=== PATIENT | male | born 1955 | race Caucasian/White ===

== ENCOUNTER 2017-06-24 08:48 | Day surgery (SDC) | payer BC ==
[~2017-06-24 08:48] MED LIST: ACETAMINOPHEN 1,000 MG/100 ML BTL IV ONE; CELECOXIB 100 MG CAPSULE PO ONE; FAMOTIDINE 20MG TABLET PO ONE; MECLIZINE 25 MG TABLET PO ONE; METOCLOPRAMIDE 10 MG TABLET PO ONE; VANCOMYCIN HCL 1,000 MG in DEXTROSE 5 % IN WATER 250 ML IVPB ONE
[2017-06-24] MEDS ORDERED: MIDAZOLAM HCL 2MG/2ML VIAL IV ONE (08:49)
[2017-06-24] MEDS ORDERED: VANCOMYCIN HCL 1 GM VIAL IVPB ONE ×2 (08:49)
[2017-06-24] MEDS ORDERED: FENTANYL PF 100MCG/2ML VIAL IV ONE (08:49)
[2017-06-24] MEDS ORDERED: HYDROMORPHONE HCL 2 MG/ML VIAL IV ONE (08:49)
[2017-06-24] MEDS ORDERED: PROPOFOL 10 MG/ML VIAL IV ONE (08:49)
[2017-06-24] MEDS ORDERED: TRANEXAMIC ACID 1,000 MG/10 ML ML IV ONE ×2 (08:49)
[2017-06-24] MEDS ORDERED: BUPIVACAINE 0.75% W/EPI MPF 30ML VIAL IVP ONE ×2 (08:49)
[2017-06-24] MEDS ORDERED: KETOROLAC 30 MG/ML VIAL IVP ONE (08:49)
[2017-06-24] MEDS ORDERED: *PACU ONLY* KETAMINE HCL 10 MG/ML (20ML) VIAL IV ONE (08:49)
[2017-06-24] MEDS ORDERED: BUPIVACAINE LIPOSOME 266MG/20ML VIAL IV ONE (08:49)
[2017-06-24] MEDS ORDERED: LIDOCAINE 2% MDV (20MG/ML) 20ML VIAL IV ONE (08:49)
[2017-06-24 09:44] LABS: ABO GROUP O; ANTIBODY SCREEN NEGATIVE (NEGATIVE); RH TYPE POSITIVE
[2017-06-24] MEDS ORDERED: DIPHENHYDRAMINE HCL 25 MG CAPSULE PO PRN (15:46)
[2017-06-24] MEDS ORDERED: DEXTROSE 5 % AND 0.9 % NACL 1,000 ML IV PRN (15:46)
[2017-06-24] MEDS ORDERED: METOCLOPRAMIDE 10 MG TABLET PO PRN (15:46)
[2017-06-24] MEDS ORDERED: ONDANSETRON 4 MG ODT TABLET SL PRN (15:46)
[2017-06-24] MEDS ORDERED: NALOXONE 0.4 MG/1 ML VIAL IVP PRN (15:46)
[2017-06-24] MEDS ORDERED: MAGNESIUM HYDROXIDE 30 ML UDC PO PRN (15:46)
[2017-06-24] MEDS ORDERED: HYDROCODONE/APAP 5/325MG TABLET PO PRN ×2 (15:46)
[2017-06-24] MEDS ORDERED: ACETAMINOPHEN W/ CODEINE 300MG/30MG TABLET PO PRN ×2 (15:46)
[2017-06-24] MEDS ORDERED: BISACODYL 10 MG SUPP RC PRN (15:46)
[2017-06-24] MEDS ORDERED: HYDROCODONE/APAP 7.5/325MG TABLET PO PRN ×2 (15:46)
[2017-06-24] MEDS ORDERED: AL HYDROX/MAG HYDROX 30ML UD PO PRN (15:46)
[2017-06-24] MEDS ORDERED: ACETAMINOPHEN 325 MG TAB PO PRN (15:46)
[2017-06-24] MEDS ORDERED: TRAMADOL HCL 50 MG TABLET PO PRN ×2 (15:46)
[2017-06-24] MEDS ORDERED: ACETAMINOPHEN W/ CODEINE 300MG/60MG TABLET PO PRN ×2 (15:46)
[2017-06-24] MEDS ORDERED: PROMETHAZINE HCL 25 MG TABLET PO PRN (15:46)
[2017-06-24] MEDS ORDERED: KETOROLAC 30 MG/ML VIAL IVP PRN ×2 (15:46)
--- NOTE | 2017-06-24 15:52 | Rehab Evaluation ---
Patient Information - Patient Information Diagnosis: R TKA Ordered Treatment: OT Evaluate and Treat Status: Initial Evaluation Surgery: Yes Date of Surgery: 06/24/17 Past Medical/Surgical Hx: PAST MEDICAL/SURGICAL HISTORY Past Surgical History rt knee; lipoma lt shoulder; basal cell forehead may 30 colonoscopy PMH - Respiratory Hx Respiratory Disorders No PMH - Cardiovascular Hx Cardiovascular Disorders Yes Hx Hypertension Yes Exercise Tolerance Good Comment: bikes often- 18 miles PMH - Neuro Hx Neurological Disorders No PMH - GI Hx Gastrointestinal Disorders Yes Hx Gastroesophageal Reflux Yes: r/t aspirin; nsaids PMH - Hx Genitourinary Disorders Yes Hx Kidney Stones Yes: in past ; PMH - Endocrine Hx Endocrine Disorders No PMH - Musculoskeletal Hx Musculoskeletal Disorders Yes Hx Arthritis Yes: knee PMH - Psych Hx Psychiatric Problems No PMH - Hematology/Oncology Hx Hematology/Oncology Yes Disorders Hx Cancer Yes: basal cell -forehead Premorbid Status: Detail (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 Pt has 2 steps to enter house from garage and 1 step w/ R side railing to enter from front of house. Pt's bedroom, bathroom, and kitchen are located on 1st floor. He has tub/shower combo, standard toilet, and 2WW.) Precautions: [place], Fall - Time With Patient Total Time Spent With Patient (Min): 25 Treatment Procedures: Detail (OT eval LOW) Subjective Information - Subjective Information Per Patient Objective Data - Pain Pain Present: No Pain Intensity: 0 (R knee) Pain Scale Used: Numeric (1 - 10) - Mental Status Patient Orientation: Oriented x3 - Visual Perception Appears within normal limits for therapeutic activities - ROM Within normal limits (BUE's) - Strength/Tone Within normal limits (BUE's) - Coordination Appears within normal limits for therapeutic activities - Bed Mobility Independent - Transfers Independent (Sit<>stand) - Balance Balance Sitting: Good Balance Standing: Good - Sensation Intact (Ren hands) - Gait Detail (Pt amb. independently w/ 2WW to and from BR to trial voiding while standing. Pt unable to void and amb back to EOB to complete drsg.) - ADL's/IADL's Detail (Pt educated on modified drsg technique. Pt demo'd ind. w/ breif and pants don. Pt ind. w/ ren sock doff. Ind w/ L sock don. Required assistance from friend to don R sock. Pt's friend will be around to assist w/ sock and shoe don until pt able to reach R foot himself. Pt plans to sponge bath. Pt's friend will be staying with him to assist with ADLs and home chores as needed.) Therapy Assessment - Therapy Assessment Detail (Pt safe and independent w/ pants don/doff. He requires some assistance w / R sock and shoe don but will have assistance from pt's friend. Do not anticipate pt needing further inpatient OT.) Patient Education - Patient Education Teaching Topic: Other (Modified drsg technique) Response: Return Demonstration Teaching Method: Discussion Teaching Recipient: Patient, Primary Caregiver Barriers To Learning: None Prognosis - Prognosis Good Plan - Plan Occupational Therapy Plan: No further inpatient OT needed at this time. Pt to be d/c'd from inpatient OT.
[2017-06-24] MEDS ORDERED: VANCOMYCIN HCL 500 MG in 0.9 % SODIUM CHLORIDE 100ML 100 ML IVPB SCH (16:00)
--- NOTE | 2017-06-24 16:52 | Rehab Evaluation ---
Patient Information - Patient Information Diagnosis: R TKA Ordered Treatment: PT Evaluate and Treat Status: Initial Evaluation Surgery: Yes Date of Surgery: 06/24/17 Past Medical/Surgical Hx: PAST MEDICAL/SURGICAL HISTORY Past Surgical History rt knee; lipoma lt shoulder; basal cell forehead may 30 colonoscopy PMH - Respiratory Hx Respiratory Disorders No PMH - Cardiovascular Hx Cardiovascular Disorders Yes Hx Hypertension Yes Exercise Tolerance Good Comment: bikes often- 18 miles PMH - Neuro Hx Neurological Disorders No PMH - GI Hx Gastrointestinal Disorders Yes Hx Gastroesophageal Reflux Yes: r/t aspirin; nsaids PMH - Hx Genitourinary Disorders Yes Hx Kidney Stones Yes: in past ; PMH - Endocrine Hx Endocrine Disorders No PMH - Musculoskeletal Hx Musculoskeletal Disorders Yes Hx Arthritis Yes: knee PMH - Psych Hx Psychiatric Problems No PMH - Hematology/Oncology Hx Hematology/Oncology Yes Disorders Hx Cancer Yes: basal cell -forehead Premorbid Status: Detail (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 Pt has 2 steps to enter house from garage and 1 step w/ R side railing to enter from front of house. Pt's bedroom, bathroom, and kitchen are located on 1st floor. He has tub/shower combo, standard toilet, and 2WW.) Precautions: [place], Fall - Time With Patient Total Time Spent With Patient (Min): 30 Treatment Procedures: Detail (Initial Evaluation, Gait training and instruction in HEP) Subjective Information - Subjective Information Per Patient (The patient had no complaints of pain. The patient did complain of nausea when ambulating and vomitted after descending stairs.) Objective Data - Mental Status Patient Orientation: Oriented x3 - Visual Perception Appears within normal limits for therapeutic activities - ROM Not within normal limits (The patient's R knee flexion was to 90 degrees and extension to 0 degrees. All other LE AROM was WNL.) - Strength/Tone Within normal limits (The patient's L LE strength was generally 4+ to 5/5, RLE strength was not tested secondary to status post surgery, however it was functional ie: patient was able to complete a SLR.) - Bed Mobility Independent (The patient was independent with supine to and from sit transfer and scooting up in bed.) - Transfers Independent (The patient was indepedent with sit to and from stand transfer) - Balance Balance Sitting: Good Balance Standing: Good - Sensation Intact - Gait Detail (The patient ambulated with wheeled walker independently a distance of 108 ft. x 1 WBAT on the R LE. The patient ambulated on the stairs with supervision for safety only and verbal cues for proper technique. 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 The patient is to have Home Care PT.) Patient Education - Patient Education Teaching Topic: Exercise/Activity (The patient completed LE TKA exercises : SLR , heel slides, quad sets, gluteal sets, hamstring sets and ankle pumps.) Response: Return Demonstration Teaching Method: Demonstration, Handout Teaching Recipient: Patient Barriers To Learning: None Problem List - Problem List Physical Therapy Problem List: Detail (Decreased R knee AROM and strength) Goals - Goals Physical Therapy Goals: All inpatient PT goals were met. ( Independent with mobility, ambulation on levels and stairs and HEP.) Prognosis - Prognosis Good Plan - Plan Physical Therapy Plan: Patient is discharged from inpatient PT at this time. Patient is to continue with Home PT Occupational Therapy Plan: No further inpatient OT needed at this time. Pt to be d/c'd from inpatient OT.
[2017-06-24] MEDS ORDERED: DOCUSATE SODIUM 100 MG CAPSULE PO SCH (22:00)
[2017-06-25] MEDS ORDERED: AMLODIPINE BESYLATE 5MG TAB PO SCH (10:00)
[2017-06-25] MEDS ORDERED: BENAZEPRIL 20 MG TABLET PO SCH (10:00)
--- NOTE | 2017-06-25 13:50 | Operative Note ---
DATE OF SURGERY: 06/24/2017 PREOPERATIVE DIAGNOSIS: Right knee end-stage varus arthrosis. POSTOPERATIVE DIAGNOSIS: Right knee end-stage varus arthrosis. OPERATION: Right total knee arthroplasty. Surgeon: Woody Cavanaugh MD Anesthesia: Spinal, Ana ZAMORA. COMPLICATIONS: None. ESTIMATED BLOOD LOSS: Minimal. TIME: Approximately 60 minutes. OPERATIVE FINDINGS: Severe [id number] varus arthrosis. COMPONENTS PLACED: A [employer] II Oxinium total knee arthroplasty system size 9 femoral component, a size 8 tibial baseplate, an 11 mm thick tibial poly insert, and a 35 mm cemented patellar component 2 g vancomycin. Indications: This is a 61-year-old male with severe varus bilateral knee arthrosis, failed nonoperative treatment, scheduled for procedure above. I explained all risks and benefits in detail for the diagnosis and procedure including but not limited to infection, nerve injury, vessel injury, persistent pain, stiffness, numbness, tingling, need for anticoagulation to prevent blood clots, the risks associated with these medications, need for further procedures, need for resection arthroplasty if components become infected or loosen, nerve injury, vessel injury. All his questions were answered. The course was outlined. He agreed to proceed. PROCEDURE: The patient brought to the OR, placed in the supine position, prepped for surgery. Spinal anesthesia induced. The right lower extremity prepped and draped in sterile fashion. Right knee prepped again with Chloraprep and draped. Intraoperative timeout was performed. Next, the leg was exsanguinated with Esmarch. The leg was flexed and tourniquet inflated to 250 mmHg pressure. Next, skin and subcutaneous tissue dissected down. Medial and lateral skin flaps. Incised the capsule medially along the medial border of the patella to the tibial tubercle. Incised the vastus medialis in line with its fibers in a mid vastus approach and everted the patella. I partially resected the retropatellar fat pad, flexed the knee, elevated the capsule subperiostial and medial as well. He had severe varus medial compartment arthrosis, erosive arthrosis approximately a centimeter erosion posteromedial tibial plateau. Next, drilled intracondylar drill hole and inserted intramedullary guide francine and the 6-degree cutting block and aligned off the distal femoral condyle. Pinned it in +2 mm position and cut the distal femoral condyles. Next, we placed a sizing jig on the distal femoral condyle and sized it to be right on size 9. Brought out the instrument set, placed a size 9 jig through the previously-placed pin holes, dialed in the anterior cut so it would come out flush without notching. We cut that cut and it was a good flush cut. Next, we pinned the cutting jig in place and cut the chamfer cuts in the usual fashion. Placed a size 9, centered it, pinned it, and removed osteophytes off periphery. Inserted the femoral resection collet and reamed out with box osteotome and the cruciate bone block. Next, attention turned to the tibia. Placed the spikes in the tubercular groove 2 fingerbreadths distal to the anterior tibial cortex off the tibial anatomic axis of the central third tibial tubercle. Next, we referenced with a cutting jig for a 9 mm cut off the higher lateral plateau. We checked our resection cut, cutting resection cut grocery checker so that it would come out just flush and skive the medial erosive posteromedial tibial plateau, which at that level it would. Next, we cut the tibia and it was a good cut. Next, we removed osteophytes off the posterior femoral condyle using a curved osteotome. We released the capsule and deep MCL with electrocautery subperiosteally and curved osteotome medially and lengthened the deep MCL slightly so that we would balance our ligament tension in flexion/extension gaps and we sized up to an 11 mm insert. This allowed for 2-3 mm of varus/valgus laxity in flexion/extension. Overall alignment cuts in extension with anatomic valgus orientation with alignment francine centered on the hip joint and ankle joint. Next, then took the knee into flexion, sized the tibial baseplate with a size 8, replaced all trial components, set the rotation tibial baseplate again extension using the alignment francine centered on hip joint and ankle joint. Marked electrocautery etienne on the anterior tibial cortex off the laser etienne on the tibial baseplate. Next, attention was turned to the patella. We set the cutting jig to allow for a 9 mm thick patellar insert, which was about 22-23 mm. We cut the patella. It was right on 12-13 mm. We then sized it and found to be 35, medialized as much as possible and drilled 3 peg holes and then mixed cement. Did a trial range of motion. Patellar tracked nicely handsfree. Full extension and flexion to 140-150 degrees again symmetric flexion/extension gaps. Next, flexed the knee, exposed the proximal tibia and seated the tibial baseplate off the previously-placed electrocautery etienne, pinned it in place and reamed out and box osteotome and inserted the keel punch. Next, changed gloves, brought in clean sheets, copiously irrigated with bolus pulse lavage and antibiotic solution. Placed bone plug femoral canal hole, placed the reamer, drill bit in the tibial hole to prevent cement extrusion, packed down the tibial component first and then the femoral component and clamped down on the patella component and held the knee in extension until cement hardened and then removed excess cement. Once the cement hardened, took the knee in flexion and removed the patella clamp. Removed the trial tibial poly insert and irrigated and removed any excess cement around the edges and posteriorly recessed the components. Next, injected the posterior, medial, and lateral capsule, medial and lateral periosteum, vastus medialis, subcutaneous with 0.5% Marcaine with epinephrine, 2 g tranexamic acid, and Exparel mixture and then inserted the real tibia poly insert and verifies it was interlocked medially and laterally. We found our range of motion to be the same. Irrigated. Closed the vastus split and capsule with running #2 Quill suture with knee in flexion. We also did slightly tight laterally. Therefore, we did a pie crusting lateral release and this removed some of the tension and pull on the lateral patella. Next, we irrigated and closed the skin with 2-0 Vicryl and staple and placed zip line. Injected the skin also with 0.5% Marcaine with epinephrine. Sterile dressing applied. Tank wrap. Tolerated the procedure well. No intraoperative complications. Sponge, needle, and blade counts correct. Recovery room stable, neurovascularly intact. Will be discharged as an outpatient total joint program. Will have home therapy nurse with [facility] today and follow up in 2 weeks and I will him at his home to admit him in his house this afternoon/evening. CC: Yamilet DOMINGUEZ
== END 2017-06-24 17:53 | disposition home health service (06) ==
LOC: SUR 08:48 → MEDSURG 14:15 → SUR 17:53
PROVIDERS: ATTEND Orthopaedic Surgery
DX: M17.11 Unilateral primary osteoarthritis, right knee (principal); I10 Essential (primary) hypertension
CPT/HCPCS: 86850; 86900; 86901; 97165; J1885; J3370; J3490; J7060

== ENCOUNTER 2017-09-02 10:31 | Day surgery (SDC) | payer BC ==
[2017-09-02] MEDS ORDERED: *PACU ONLY* KETAMINE HCL 10 MG/ML (20ML) VIAL IV ONE (10:32)
[2017-09-02] MEDS ORDERED: KETOROLAC 30 MG/ML VIAL IVP ONE (10:32)
[2017-09-02] MEDS ORDERED: BUPIVACAINE 0.5% (5MG/ML) PF 30ML VIAL IVP ONE (10:32)
[2017-09-02] MEDS ORDERED: SCOPOLAMINE 1 PATCH TDSY TD ONE (10:32)
[2017-09-02] MEDS ORDERED: PROPOFOL 10 MG/ML VIAL IV ONE (10:32)
[2017-09-02] MEDS ORDERED: MIDAZOLAM HCL 2MG/2ML VIAL IV ONE (10:32)
[2017-09-02 11:14] LABS: ABO GROUP O; ANTIBODY SCREEN NEGATIVE (NEGATIVE); RH TYPE POSITIVE
[2017-09-02] MEDS ORDERED: NALOXONE 0.4 MG/1 ML VIAL IVP PRN (12:37)
[2017-09-02] MEDS ORDERED: ACETAMINOPHEN 325 MG TAB PO PRN (12:37)
[2017-09-02] MEDS ORDERED: HYDROCODONE/APAP 7.5/325MG TABLET PO PRN ×2 (12:37)
[2017-09-02] MEDS ORDERED: DIPHENHYDRAMINE HCL 25 MG CAPSULE PO PRN (12:37)
[2017-09-02] MEDS ORDERED: PROMETHAZINE HCL 25 MG TABLET PO PRN (12:37)
[2017-09-02] MEDS ORDERED: TRAMADOL HCL 50 MG TABLET PO PRN ×2 (12:37)
[2017-09-02] MEDS ORDERED: AL HYDROX/MAG HYDROX 30ML UD PO PRN (12:37)
[2017-09-02] MEDS ORDERED: ONDANSETRON 4 MG ODT TABLET SL PRN (12:37)
[2017-09-02] MEDS ORDERED: KETOROLAC 30 MG/ML VIAL IVP PRN ×2 (12:37)
[2017-09-02] MEDS ORDERED: ACETAMINOPHEN W/ CODEINE 300MG/60MG TABLET PO PRN ×2 (12:37)
[2017-09-02] MEDS ORDERED: BISACODYL 10 MG SUPP RC PRN (12:37)
[2017-09-02] MEDS ORDERED: HYDROCODONE/APAP 5/325MG TABLET PO PRN ×2 (12:37)
[2017-09-02] MEDS ORDERED: METOCLOPRAMIDE 10 MG TABLET PO PRN (12:37)
[2017-09-02] MEDS ORDERED: ACETAMINOPHEN W/ CODEINE 300MG/30MG TABLET PO PRN ×2 (12:37)
[2017-09-02] MEDS ORDERED: MAGNESIUM HYDROXIDE 30 ML UDC PO PRN (12:37)
[2017-09-02] MEDS ORDERED: DEXTROSE 5 % AND 0.9 % NACL 1,000 ML IV PRN (15:00)
[2017-09-02] MEDS ORDERED: VANCOMYCIN HCL 500 MG in 0.9 % SODIUM CHLORIDE 100ML 100 ML IVPB SCH (15:30)
--- NOTE | 2017-09-02 17:18 | Rehab Evaluation ---
Patient Information - Patient Information Diagnosis: Left TKA Ordered Treatment: OT Evaluate and Treat Status: Initial Evaluation Surgery: Yes (L TKA) Date of Surgery: 09/02/17 Past Medical/Surgical Hx: PAST MEDICAL/SURGICAL HISTORY Past Surgical History rt knee; lipoma lt shoulder; basal cell forehead may 30 colonoscopy RTKA 07/04 PMH - Respiratory Hx Respiratory Disorders No PMH - Cardiovascular Hx Cardiovascular Disorders Yes Hx Hypertension Yes Exercise Tolerance Fair Comment: bikes often- 18 miles PMH - Neuro Hx Neurological Disorders No PMH - GI Hx Gastrointestinal Disorders Yes Hx Gastroesophageal Reflux Yes: r/t aspirin; nsaids PMH - Hx Genitourinary Disorders Yes Hx Kidney Stones Yes: in past ; PMH - Endocrine Hx Endocrine Disorders No PMH - Musculoskeletal Hx Musculoskeletal Disorders Yes Hx Arthritis Yes: knee PMH - Psych Hx Psychiatric Problems No PMH - Hematology/Oncology Hx Hematology/Oncology Yes Disorders Hx Cancer Yes: basal cell -forehead Premorbid Status: Detail (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 Pt's friend occupys the 2nd floor while patient occupys 1st floor. Pt's bedroom, bathroom, and kitchen are all located on the first floor. Pt has a tub/ shower combo, standard toilet, and 2WW. There are 2 steps to enter house from garage and 1 step from front porch entrance.) Precautions: [place], Fall, Other (WBAT) - Time With Patient Total Time Spent With Patient (Min): 15 Treatment Procedures: Detail (OT eval LOW) Subjective Information - Subjective Information Per Patient (Pt states he is feeling great after therapy and is excited to get home as soon as possible.) Objective Data - Pain Pain Present: No - Mental Status Patient Orientation: Oriented x3 - Visual Perception Appears within normal limits for therapeutic activities - ROM Within normal limits (BUE's) - Strength/Tone Within normal limits (BUE's) - Coordination Appears within normal limits for therapeutic activities - Transfers Independent (sit<>stand t/f) - Balance Balance Sitting: Good Balance Standing: Good - Sensation Intact (Ren digits.) - Gait Detail (Pt ambulated from bedroom to stairwell independently w/ 2WW.) - ADL's/IADL's Detail (Pt able to don pants independently. He was able to verbalize technique as he remembered from his R TKA he had done in June. Attempted to don socks but patient unable to reach at this time. Pt has good friend staying with him that assisted with all ADLs after last TKA and will be willing to help as needed following this sx. Discussed bathing and wrapping L knee. Pt plans to sponge bath for first few days.) Therapy Assessment - Therapy Assessment Detail (Pt safe and independent with pants don. He will have assistance available for sock and shoe don until ROM increases in L knee. Pt able to verbalize understanding of wrapping technique when bathing to prevent water saturation on incision. No further inpatient OT needed.) Patient Education - Patient Education Teaching Topic: Other (modified drsg technique) Response: Return Demonstration Teaching Method: Discussion Teaching Recipient: Patient Barriers To Learning: None Prognosis - Prognosis Good Plan - Plan Occupational Therapy Plan: No further inpatient OT needed at this time.
--- NOTE | 2017-09-02 17:25 | Rehab Evaluation ---
Patient Information - Patient Information Diagnosis: Left TKA Ordered Treatment: PT Evaluate and Treat Status: Initial Evaluation Surgery: Yes (L TKA) Date of Surgery: 09/02/17 Past Medical/Surgical Hx: PAST MEDICAL/SURGICAL HISTORY Past Surgical History rt knee; lipoma lt shoulder; basal cell forehead may 30 colonoscopy RTKA 07/04 PMH - Respiratory Hx Respiratory Disorders No PMH - Cardiovascular Hx Cardiovascular Disorders Yes Hx Hypertension Yes Exercise Tolerance Fair Comment: bikes often- 18 miles PMH - Neuro Hx Neurological Disorders No PMH - GI Hx Gastrointestinal Disorders Yes Hx Gastroesophageal Reflux Yes: r/t aspirin; nsaids PMH - Hx Genitourinary Disorders Yes Hx Kidney Stones Yes: in past ; PMH - Endocrine Hx Endocrine Disorders No PMH - Musculoskeletal Hx Musculoskeletal Disorders Yes Hx Arthritis Yes: knee PMH - Psych Hx Psychiatric Problems No PMH - Hematology/Oncology Hx Hematology/Oncology Yes Disorders Hx Cancer Yes: basal cell -forehead Premorbid Status: Detail (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 Pt's friend occupys the 2nd floor while patient occupys 1st floor. Pt's bedroom, bathroom, and kitchen are all located on the first floor. Pt has a tub/ shower combo, standard toilet, and 2WW. There are 2 steps to enter house from garage and 1 step from front porch entrance.) Precautions: [place], Fall, Other (WBAT) - Time With Patient Total Time Spent With Patient (Min): 30 Treatment Procedures: Detail (Initial Evaluation) Subjective Information - Subjective Information Per Patient (The patient was up in chair when PT arrived and had no complaints of knee pain.) Objective Data - Mental Status Patient Orientation: Oriented x3 - ROM Not within normal limits (L knee AROM was not assessed s/p surgery. All other LE AROM was within normal limits.) - Strength/Tone Not within normal limits (The patient's L LE strength was not tested secondary to status post surgery, however the patient's strength was functional.) - Bed Mobility Independent (The patient was up in chair when PT arrived, however the patient was independent with bed mobility supine to and from sit per nursing staff.) - Transfers Independent (The patient was independent with sit to and from stand transfer.) - Balance Balance Sitting: Good Balance Standing: Good (The patient was able to stand and put on his pants on.) - Sensation Intact - Gait Detail (The patient ambulated with wheeled walker WBAT on the L LE independently a distance of 108 feet x 1. The patient ambulated on 3 steps with use of folded walker and one railing with supervision of 1 for safety only and verbal cues for proper technique. The patient's was informed that the patient may require cueing for proper technique.) Therapy Assessment - Therapy Assessment Detail (The patient is independent with bed mobility transfers and ambulation with wheeled walker. Verbal cueing and supervision is recommended on stairs, which patient's will provide.) Patient Education - Patient Education Teaching Topic: Exercise/Activity (The patient's HEP was reviewed including ankle pumps, gluteal sets, hamstring sets quad sets, heel slides and SLR. The patient had good unstanding of HEP.) Response: Return Demonstration, Verbalize Understanding Teaching Method: Handout Teaching Recipient: Patient Barriers To Learning: None Problem List - Problem List Physical Therapy Problem List: Detail (1) Decreased L knee AROM and strength as to be expected s/p surgery.) Goals - Goals Physical Therapy Goals: The patient has met all PT inpatient goals including: Independent bed mobility, transfers and ambulation on levels and stairs. The patient was Independent with HEP. Prognosis - Prognosis Good Plan - Plan Physical Therapy Plan: The patient is discharged from inpatient PT secondary to all inpatient goals have been met. The patient is to receive home and outpatient PT.
--- NOTE | 2017-09-02 20:58 | Operative Note ---
DATE OF SURGERY: 09/02/2017. PREOPERATIVE DIAGNOSIS: ENDSTAGE LEFT KNEE ARTHROSIS. POSTOPERATIVE DIAGNOSIS: ENDSTAGE LEFT KNEE ARTHROSIS. OPERATION: Left total knee arthroplasty. SURGEON: Woody Cavanaugh M.D. ANESTHESIA: Spinal, Ana Lovell CRNA. COMPLICATIONS: None. ESTIMATED BLOOD LOSS: Minimal. TOURNIQUET TIME: Approximately 70 minutes. 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 COMPONENTS PLACED: A total of 2.0 gm vancomycin cement, [employer] II Oxinium size 9 femoral component, a size 8 tibial baseplate, a 15 mm thick tibial poly insert, and 35 mm cemented patellar component. INDICATIONS: This is an 62-year-old male who has had endstage bilateral varus knee arthrosis for several years. He is status post right total knee arthroplasty by myself done several months ago, and he is now scheduled for this procedure on the left. I explained to him all risks and benefits of surgery in detail for the diagnosis and procedures including but not limited to infection, nerve injury, vessel injury, persistent pain, stiffness, numbness and tingling in his knee, periprosthetic fracture, need for resection arthroplasty should the components become infected or loosened, blood clot and the need for anticoagulation to prevent blood clots and the risks associated with medications, and the need for further procedures. All of his questions were answered. The treatment and course were outlined and he agreed to proceed. PROCEDURE: The patient brought to the operating room. He was placed in the supine position. Spinal anesthesia was induced. His left lower extremity was prepped and draped in sterile fashion. The left knee was prepped again with ChloraPrep and draped. Intraoperative time out was performed. Next, the leg was exsanguinated and the knee was flexed. The tourniquet was inflated to 250 mm Hg pressure. Next, the skin and subcutaneous tissues were dissected down. Medial and lateral skin flaps were made. Incised the capsule medially around the medial border of the patella to the tibial tubercle. Incised the vastus medialis in line with its fibers. I everted the patella and partially resected the retropatellar fat. He had severe varus arthrosis in the knee with erosion of the medial tibial plateau and complete erosion of all cartilage. Next I drilled an intracondylar drill hole and inserted intramedullary guide francine. I used the 60-degree cutting block to line up the distal femoral condyle and pinned it in place in the +2.0 mm position. I then cut the distal femoral condyle. Next I placed the sizing jig on the distal femoral condyle and sized it to be right on size 9. Through the previously-placed pin holes I placed a size 9 cutting jig. We dialed in the anterior cut so it would come out flush without notching in the +2.0 mm position. We cut that and it was a good cut. We verified that and cut the remaining chamfer cuts in the usual fashion. I placed a size 9 trial component, centered it, and pinned it. I removed osteophytes off the periphery and it was a good fit. Next, we placed the cruciate bone block resection jig and locked it in place. I reamed out and used the box osteotome for the cruciate bone block. Next, attention was turned to the tibia. Placed the Ramsey retractor and two Hohmann retractors and exposed the proximal tibia. I seated the spikes in the intertubercular groove of the tibial external alignment jig two fingerbreadths distally off the anterior tibial cortex. Referenced for a 9.0 mm cut off the higher lateral plateau. We verified the cut level with the posteromedial rows in the tibia and then cut it just enough. We then pinned that in place provisionally. We then rechecked alignment with a drop francine and the cutting jig. We then cross pinned it to complete its fixation and cut the tibia. Next, we removed osteophytes off the posterior femoral condyles and checked the flexion and extension gaps. We placed a size up to a 15 mm thick poly insert. This allowed for 2.0 to 3.0 mm of varus and valgus laxity in flexion and extension. Overall alignment with cuts in extension with anatomic valgus orientation with alignment rods sitting on the hip joint and ankle joint. Next we took the knee in flexion and sized the tibial baseplate to be size 8. We replaced all trial components again and set the rotation of the tibial base plate again in extension using the alignment francine centered on the hip joint and ankle joint. Marked electrocautery etienne off the laser etienne of the tibial baseplate. Next, attention was turned to the patella. I measured the patella to be 13 to 14 mm. I set the cutting jig at 13 mm to allow for a 9.0 mm thick poly insert. I cut the patella and chamfered off the lateral patellar facet. I remeasured , and it was right on 13. Next, I sized the patella to be 35 and medialized as much as possible. I drilled three peg holes and overdrilled them. I placed the trial patella component and then did a trial range of motion. The patella tracked nicely with full extension and flexion to 140 to 150 degrees. Overall alignment cuts in extension with anatomic valgus orientation again and symmetric flexion and extension gap. I mixed cement. Next, I took the knee into flexion. I placed a bone plug in the femoral keel hole after we keel punched that. We placed the tibial base plate off the previously placed electrocautery etienne. I pinned it in place and reamed out and keel punched the keel hole. I changed gloves and brought in a clean sheet. I copiously irrigated all bony surfaces and pulse lavaged with antibiotic solution. I precoated both surfaces and then impacted down down the tibial component first and then the femoral component. I verified they were seated and removed the excess cement. I placed the trial poly liner, held the knee in extension, and clamped down the patellar component until the cement hardened. Once the cement hardened, I took the knee into flexion. I distracted the knee with a bone hook and sponge. I injected the knee around the peripherally with 0.5% Marcaine with epinephrine, tranexamic acid, and Exparel mixture. I inserted the real tibial poly insert and verified it was interlocked medially and laterally. I found our range of motion was still the same. Next, I irrigated copiously. I repaired the knee in flexion using running #2 Quill suture in the capsule. I irrigated again and closed the skin with #2-0 Vicryl and then a zip line was applied. A sterile dressing was applied and an Tank wrap. The patient tolerated the procedures well. No intraoperative complications. Sponge, needle, and blade counts correct. Recovery room stable, neurovascularly intact. He will be discharged as an outpatient and will have a [facility] nurse immediately for today when he arrives home. He will then follow up in two weeks. cc: Primary Care Doctor JOB NUMBER: [id number] [facility]
[2017-09-02] MEDS ORDERED: DOCUSATE SODIUM 100 MG CAPSULE PO SCH (22:00)
== END 2017-09-02 16:25 | disposition home health service (06) ==
LOC: SUR 10:31 → MEDSURG 15:16 → SUR 16:25
PROVIDERS: ATTEND Orthopaedic Surgery
DX: M17.12 Unilateral primary osteoarthritis, left knee (principal); I10 Essential (primary) hypertension
CPT/HCPCS: 27447; 01402; 86900; 86901; 86850; J1885; J3370; J7060